=== PATIENT | female | born 1990 | race Caucasian/White ===

== ENCOUNTER 2016-11-10 19:08 | Emergency (ER) | payer BC, OTHER ==
[2016-11-10 19:58] VITALS: BP 142/83
--- NOTE | 2016-11-10 20:51 | UC ---
Skin Complaint HPI - HPI Summary HPI Summary: Patient complains of a "cyst" in her groin which has been present for about 6 months, increases and decreases in size over time, but now is bothering her more than usual. Patient has failed a course of abx for abscess. The area does not drain any pus, but she has noticed it had drained blood 1X in the past. States she would like to get it taken care of today since it is larger and more bothersome. - History of Current Complaint Chief Complaint: UCSkin Stated Complaint: SKIN COMPLAINT Hx Obtained From: Patient Hx Last Menstrual Period: 2 weeks ago ?: No Onset/Duration: Gradual Onset, Worse Since - last week Timing: Constant Onset Severity: Moderate Current Severity: Moderate Pain Intensity: 5 Pain Scale Used: 0-10 Numeric Location: Discrete - at L groin Character: Raised, Painful Aggravating: Clothing, Touch Alleviating: Nothing Associated Signs & Symptoms: Positive: Negative Related History: Trauma - Allergy/Home Medications Allergies/Adverse Reactions: Allergies Allergy/AdvReac Type Severity Reaction Status Date / Time Amoxicillin Allergy Rash Verified 11/10/16 19:58 STRAWBERRIES Allergy Nausea Uncoded 11/10/16 19:58 WHEAT Allergy Nausea Uncoded 11/10/16 19:58 Home Medications: Home Medications Cholecalciferol [Vitamin D] 11/10/16 [History] Review of Systems Constitutional: Negative Skin: Other - small raised area in the L groin Eyes: Negative Respiratory: Negative Cardiovascular: Negative Motor: Negative Musculoskeletal: Negative Neurological: Negative Psychological: Negative All Other Systems Reviewed And Are Negative: Yes PMH/Surg Hx/FS Hx/Imm Hx Previously Healthy: Yes Endocrine History Of: Reports: Thyroid Disease - HYPOTHYROIDISM Cardiovascular History Of: Reports: Cardiac Disorders - 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 ankle fx repair - Family History Known Family History: Positive: Unknown - Social History Occupation: Employed Part-time Lives: Alone Alcohol Use: Rare Substance Use Type: None Smoking Status (MU): Never Smoked Tobacco - Immunization History Most Recent Influenza Vaccination: UNSURE, NIOT THIS YEAR Most Recent Tetanus Shot: UP TO DATE Most Recent Pneumonia Vaccination: NEVER Physical Exam Triage Information Reviewed: Yes Appearance: Well-Appearing, No Pain Distress, Well-Nourished Vital Signs: Initial Vital Signs Temp 97.8 F 11/10/16 19:55 Pulse 64 11/10/16 19:55 Resp 16 11/10/16 19:55 BP 142/83 11/10/16 19:55 Pulse Ox 100 11/10/16 19:55 Vital Signs Reviewed: Yes Eye Exam: Normal Eyes: Positive: Conjunctiva Clear ENT Exam: Normal Neck exam: Normal Neck: Positive: Supple, Nontender Respiratory Exam: Normal Respiratory: Positive: Chest non-tender, Lungs clear Cardiovascular Exam: Normal Musculoskeletal Exam: Normal Neurological Exam: Normal Neurological: Positive: Alert Psychological Exam: Normal Psychological: Positive: Normal Response To Family, Age Appropriate Behavior Skin: Positive: significant lesion(s) - L groin raised nodule consistent with cyst vs. lipoma Course/Dx - Course Course Of Treatment: provider discussed abscess vs. lipoma vs cyst. Patient previously failed course of abx. Would like removal. Provider encouraged to follow up with surgeon. - Differential Diagnoses - Skin Complaint Differential Diagnoses: Other - lipoma, sebasceous cyst, abscess - Diagnoses Provider Diagnoses: groin nodule Discharge - Discharge Plan Condition: Stable Disposition: HOME Referrals: No Primary Care Phys,NOPCP [Primary Care Provider] - Eliezer Oleary MD [Medical Doctor] - Additional Instructions: Follow up with surgeon for removal of cyst vs lipoma vs other pathology. May take ibuprofen for pain and inflammation.
== END 2016-11-10 21:09 | disposition home or self-care (01) ==
LOC: UCEAST 19:08
DX: R19.09 Other intra-abdominal and pelvic swelling, mass and lump (principal); Z88.0 Allergy status to penicillin
CPT/HCPCS: 99211; G0463

== ENCOUNTER 2016-11-23 20:19 | Emergency (ER) | payer OTHER ==
[2016-11-23 20:29] VITALS: BP 127/87
--- NOTE | 2016-11-23 20:52 | UC ---
Skin Complaint HPI - HPI Summary HPI Summary: Pt had procedure done about 11 days ago where inflamed cyst was removed from L groin fold. Had sutures placed, sutures were removed 4 days ago, and then wound started to bleed and drain about 2 days ago. Now feels more sore. - History of Current Complaint Chief Complaint: UCSkin Time Seen by Provider: 11/23/16 20:43 Stated Complaint: WOUND RECHECK Hx Obtained From: Patient Hx Last Menstrual Period: 11/07/16 ?: No Onset/Duration: Gradual Onset, Lasting Days Skin Exposure Onset/Duration: Days Ago Timing: Constant Onset Severity: Mild Current Severity: Mild Location: Discrete Character: Pain Aggravating: Nothing Alleviating: Nothing Associated Signs & Symptoms: Positive: Drainage - Allergy/Home Medications Allergies/Adverse Reactions: Allergies Allergy/AdvReac Type Severity Reaction Status Date / Time Amoxicillin Allergy Rash Verified 11/23/16 20:29 STRAWBERRIES Allergy Nausea Uncoded 11/23/16 20:29 WHEAT Allergy Nausea Uncoded 11/23/16 20:29 Review of Systems Constitutional: Negative Skin: Other - wound dehiscence L groin Eyes: Negative ENT: Negative Respiratory: Negative Cardiovascular: Negative Gastrointestinal: Negative Genitourinary: Negative Motor: Negative Neurovascular: Negative Musculoskeletal: Negative Neurological: Negative Psychological: Negative All Other Systems Reviewed And Are Negative: Yes PMH/Surg Hx/FS Hx/Imm Hx Endocrine History Of: Reports: Thyroid Disease - HYPOTHYROIDISM Cardiovascular History Of: Reports: Cardiac Disorders - 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 ankle fx repair - Family History Known Family History: Positive: Unknown - Social History Alcohol Use: Rare Substance Use Type: None Smoking Status (MU): Never Smoked Tobacco - Immunization History Most Recent Influenza Vaccination: UNSURE, NIOT THIS YEAR Most Recent Tetanus Shot: UP TO DATE Most Recent Pneumonia Vaccination: NEVER Physical Exam Triage Information Reviewed: Yes Appearance: Well-Appearing, No Pain Distress, Obese Vital Signs: Initial Vital Signs Temp 98.2 F 11/23/16 20:25 Pulse 80 11/23/16 20:25 Resp 20 11/23/16 20:25 BP 127/87 11/23/16 20:25 Pulse Ox 100 11/23/16 20:25 Vital Signs Reviewed: Yes Eye Exam: Normal Eyes: Positive: Conjunctiva Clear ENT Exam: Normal ENT: Positive: Normal ENT inspection, Hearing grossly normal, Pharynx normal, TMs normal Dental Exam: Normal Neck exam: Normal Neck: Positive: Supple, Nontender, No Lymphadenopathy Respiratory Exam: Normal Respiratory: Positive: Chest non-tender, Lungs clear, Normal breath sounds, No respiratory distress, No accessory muscle use Cardiovascular Exam: Normal Cardiovascular: Positive: RRR, No Murmur Musculoskeletal Exam: Normal Neurological Exam: Normal Psychological Exam: Normal Skin Exam: Other - approx 2cm linear gaping wound dehiscence L groin; no active bleeding, no drainage, no erythema or streaking. Course/Dx - Diagnoses Provider Diagnoses: L groin wound dehiscence Discharge - Discharge Plan Condition: Stable Disposition: HOME Patient Education Materials: Wound Dehiscence (ED) Additional Instructions: I am confident your wound will be able to heal if given enough time and kept clean. Change the dressing twice per day and wash it with warm soapy water 1-2 times per day. Please tailor your activity to your comfort level -- don't do anything that causes significant pain or if you feel pulling on the wound. Come back if you have an increase in pain or redness.
== END 2016-11-23 21:05 | disposition home or self-care (01) ==
LOC: UCEAST 20:19
DX: T81.31XA Disruption of external operation (surgical) wound, not elsewhere classified, initial encounter (principal); Z88.0 Allergy status to penicillin; I45.6 Pre-excitation syndrome; I47.1 Supraventricular tachycardia
CPT/HCPCS: 99212; G0463